=== PATIENT | female | born 1955 ===

== ENCOUNTER 2016-11-13 10:34 | Day surgery (SDC) | payer OTHER ==
[2016-11-11 09:58] VITALS: BMI 39.1
[2016-11-13] MEDS ORDERED: Midazolam 2 MG/2 ML VIAL ONE ×2 (13:03→13:22)
[2016-11-13] MEDS ORDERED: Nitroglycerin 50mg in D5W 50 MG/250 ML BOTTLE IV ONE (13:05)
[2016-11-13] MEDS ORDERED: Iohexol 350mgl/ml 50 ML ONE (13:31)
[2016-11-13] MEDS ORDERED: Sodium Chloride 0.9% 500 ML IV SCH (14:01)
--- NOTE | 2016-11-13 14:01 | CP.SDSHP ---
Same Day Surgery H & P - History Proposed Procedure: please see enclosed notes. no change. - Allergies Allergies: Allergies Latex, Natural Rubber Allergy (Verified 11/13/16 11:15) REDNESS - Physical Exam Vital Signs: Vital Signs 11/13/16 11:21 Temperature 97.3 F L Pulse Rate 63 Respiratory 16 Rate Blood Pressure 145/76 O2 Sat by Pulse 98 Oximetry Short Stay Discharge - Short Stay Discharge Admitting Diagnosis/Reason for Visit: DYSPNEA/ANGINA Disposition: HOME/ ROUTINE
--- NOTE | 2016-11-13 14:34 | CARDCATH ---
PROCEDURE DATE: 11/13/2016 PERFORMING PHYSICIAN: Robinson Howe MD. REFERRING PHYSICIAN: Santana Serna MD. PROCEDURE PERFORMED: Right radial artery access, left heart catheterization, coronary angiography, l eft ventriculography. INDICATIONS: Dyspnea on exertion, preoperative risk assessment, abnormal stress test. COMPLICATIONS: None. HISTORY: The patient is a 61-year-old female with past medical history of hypertension who requires breast surgery. The patient had an abnormal stress test and was referred for cardiac catheterization . DESCRIPTION OF PROCEDURE: The right wrist was prepped and draped in the usual sterile fashion. The right radial artery was accessed. Coronary angiography and left ventriculography were performed. Al l catheters were removed and a TR band was used to provide hemostasis. FINDINGS: LEFT VENTRICLE: Normal left ventricular systolic function, ejection fraction is 55%. There is no mi tral regurgitation, no aortic stenosis. LEFT MAIN: Normal. LEFT ANTERIOR DESCENDING ARTERY: There is a 50% stenosis of the proximal vessel. This is eccentric plaque formation. The rest of the vessel has minor luminal irregularities. LEFT CIRCUMFLEX ARTERY: Minor luminal irregularities. RIGHT CORONARY ARTERY: Arises from the right sinus of Valsalva. There is a right dominant circulati on. Minor luminal irregularities of the vessel is noted. LEFT VENTRICLE: Normal left ventricular systolic function. Ejection fraction is 55%. There is no mi tral regurgitation and no aortic stenosis. CONCLUSIONS: 1. Nonobstructive coronary artery disease. 2. Normal left ventricular function. PLAN: Aggressive medical therapy. Robinson Howe MD cc: [id number] TT: 11/13/2016 14:33:02 stephanie
[2016-11-13] MEDS ORDERED: Sodium Chloride 0.9% 1,000 ML IV ONE (16:12)
[2016-11-13 17:49] VITALS: BP 129/57; PULSE 85; RESP 20; TEMP 98.6; O2SAT 98
== END 2016-11-13 17:10 | disposition home or self-care (01) ==
LOC: C.CATHLAB 10:34
PROVIDERS: ATTEND Internal Medicine Cardiovascular Disease
DX: I25.119 Atherosclerotic heart disease of native coronary artery with unspecified angina pectoris (principal)
CPT/HCPCS: 93452; J1644; J2001; J2250; J3010; J7040; Q9967